=== PATIENT | male | born 1940 | race Caucasian/White ===

== ENCOUNTER 2021-09-06 16:05 | Inpatient (IN) ==
[2021-09-06 16:48] LABS: Basophils # 0.1 10*3/uL (0.0-0.2); Eosinophils # 0.2 10*3/uL (0.0-0.87); Eosinophils % 2.2 % (0.00-10.9); Hematocrit 50.5 VOL% (42.0-52.0); Hemoglobin 16.5 GM/DL (14.0-18.0); Immature Granulocytes % 0.1 %; Immature Granulocytes Absolute 0.01 #; Lymphocytes # 1.8 10*3/uL (1.4-4.0); Lymphocytes % 27.2 % (21.2-54.2); Mean Corpuscular HGB Conc 32.7 GM/DL (32-36); Mean Corpuscular Volume 98.1 FL (87-102); Mean Platelet Volume 12.7 FL (9.6-12.0); Monocytes # 0.8 10*3/uL (0.11-0.8); Monocytes % 11.7 % (1.7-12.7); Neutrophils % 57.8 % (38.7-73.9); Platelet Count 162 T/CUMM (130-400); Red Blood Count 5.15 MC/CUMM (3.8-5.5); White Blood Count 6.8 T/CUMM (4-12)
[2021-09-06] MEDS ORDERED: DILTIAZEM 25 MG/5 ML VIAL IV STA (16:59)
[2021-09-06] MEDS ORDERED: cefTRIAXone 1,000 MG in SODIUM CHLORIDE 0.9% 100 ML IV STA (17:15)
[2021-09-06] MEDS ORDERED: AZITHROMYCIN INJ 500 MG in SODIUM CHLORIDE 0.9% 250 ML IV STA (17:15)
[2021-09-06 17:18] LABS: Albumin 3.5 G/DL (3.4-5.0); Calcium 9.9 MG/DL (8.5-10.1); Osmolality,Calculated 279.8 MOS/KG (273-304); Total Protein 7.7 G/DL (6.4-8.2)
[2021-09-06] MEDS ORDERED: FUROSEMIDE 100 MG/10 ML VIAL IV STA (17:45)
[2021-09-06] MEDS ORDERED: ACETAMINOPHEN 325 MG TABLET PO PRN (18:32)
[2021-09-06] MEDS ORDERED: DEXTROSE 10% 250 ML BAG IV PRN (18:32)
[2021-09-06] MEDS ORDERED: BISACODYL 5 MG TABLET PO PRN (18:32)
[2021-09-06] MEDS ORDERED: GLUCAGON 1 MG VIAL IM PRN (18:32)
[2021-09-06] MEDS ORDERED: LEVALBUTEROL 0.63 MG/3 ML NEB RESP TX PRN (19:27)
[2021-09-06] MEDS ORDERED: guaiFENesin/DM ER 600-30 MG TABLET PO PRN (19:28)
[2021-09-06] MEDS ORDERED: LACTATED RINGERS 1,000 ML IV SCH (20:00)
[2021-09-06 20:29] LABS: Bilirubin,Urine Negative (Negative); Blood, Urine Negative (Negative); Glucose,Urine (UA) Negative (Negative); Ketones,Urine Negative (Negative); Nitrite,Urine Negative (Negative); Protein,Urine Negative (Negative); Urine Appearance Clear (Clear); Urine Color Yellow (Yellow)
[2021-09-06 20:30] LABS: Urine Urobilinogen 0.2 eU/dL (<2.0)
[2021-09-06 20:31] LABS: Bacteria,Urine Occasional /HPF (Few); Hyaline Casts,Urine 10 /LPF (0-3); Mucus,Urine Occasional /LPF (Occasional); RBC,Urine 2 /HPF (0-4)
[2021-09-06] MEDS: BUDESONIDE 0.25 MG/2 ML NEB RESP TX SCH (20:45)
[2021-09-06] MEDS: APIXABAN 5 MG TABLET PO SCH (20:46)
[2021-09-06] MEDS: SIMVASTATIN 10 MG TABLET PO SCH (20:46)
[2021-09-06] MEDS: METOPROLOL TARTRATE 100 MG TABLET PO SCH (20:46)
[2021-09-06] MEDS: DOXYCYCLINE HYCLATE INJ 100 MG in SODIUM CHLORIDE 0.9% 100 ML IV SCH (21:58)
[2021-09-06] MEDS ORDERED: IPRATROPIUM 500 MCG/2.5 ML NEB RESP TX ONE (23:07)
[2021-09-07] MEDS: IPRATROPIUM 500 MCG/2.5 ML NEB RESP TX SCH ×4 (01:30→19:30)
[2021-09-07 03:43] LABS: Basophils # 0.1 10*3/uL (0.0-0.2); Basophils % 1.1 % (0.0-0.8); Eosinophils # 0.2 10*3/uL (0.0-0.87); Eosinophils % 2.4 % (0.00-10.9); Hematocrit 45.1 VOL% (42.0-52.0); Hemoglobin 14.7 GM/DL (14.0-18.0); Immature Granulocytes % 0.3 %; Immature Granulocytes Absolute 0.02 #; Lymphocytes # 1.3 10*3/uL (1.4-4.0); Mean Corpuscular HGB Conc 32.6 GM/DL (32-36); Mean Corpuscular Volume 98.3 FL (87-102); Mean Platelet Volume 12.9 FL (9.6-12.0); Monocytes # 0.8 10*3/uL (0.11-0.8); Monocytes % 12.4 % (1.7-12.7); Neutrophils % 63.8 % (38.7-73.9); Platelet Count 149 T/CUMM (130-400); Red Blood Count 4.59 MC/CUMM (3.8-5.5); Red Cell Distribution Width 13.9 % (9.3-17.3); White Blood Count 6.6 T/CUMM (4-12)
[2021-09-07 05:01] LABS: Calcium 9.2 MG/DL (8.5-10.1); Osmolality,Calculated 287.4 MOS/KG (273-304); Potassium 3.6 MMOL/L (3.5-5.1); Thyroid Stimulating Hormone 1.62 uIU/ml (0.358-3.74)
[2021-09-07] MEDS: THYROID 60 MG TABLET PO SCH (08:27)
[2021-09-07] MEDS: BUDESONIDE 0.25 MG/2 ML NEB RESP TX SCH ×2 (09:10→19:30)
[2021-09-07] MEDS: DOXYCYCLINE HYCLATE INJ 100 MG in SODIUM CHLORIDE 0.9% 100 ML IV SCH ×2 (09:18→20:58)
[2021-09-07] MEDS: OMEGA 3 ACID ETHYL ESTERS 1 GM CAPSULE PO SCH ×2 (09:26→20:58)
[2021-09-07] MEDS: METOPROLOL TARTRATE 100 MG TABLET PO SCH ×2 (09:26→21:07)
[2021-09-07] MEDS: MONTELUKAST 10 MG TABLET PO SCH (09:26)
[2021-09-07] MEDS: APIXABAN 5 MG TABLET PO SCH ×2 (09:27→20:58)
[2021-09-07] MEDS: MULTIVITAMIN (CENTRUM) TABLET PO SCH (09:27)
[2021-09-07] MEDS: cefTRIAXone 1,000 MG in SODIUM CHLORIDE 0.9% 100 ML IV SCH (17:37)
[2021-09-07] MEDS: SIMVASTATIN 10 MG TABLET PO SCH (20:58)
[2021-09-08] MEDS: IPRATROPIUM 500 MCG/2.5 ML NEB RESP TX SCH ×4 (00:10→19:30)
[2021-09-08 05:04] LABS: Basophils # 0.1 10*3/uL (0.0-0.2); Basophils % 0.9 % (0.0-0.8); Eosinophils # 0.2 10*3/uL (0.0-0.87); Eosinophils % 2.4 % (0.00-10.9); Hematocrit 47.5 VOL% (42.0-52.0); Hemoglobin 15.2 GM/DL (14.0-18.0); Immature Granulocytes % 0.5 %; Immature Granulocytes Absolute 0.03 #; Lymphocytes # 1.7 10*3/uL (1.4-4.0); Lymphocytes % 26.9 % (21.2-54.2); Mean Corpuscular Volume 99.4 FL (87-102); Mean Platelet Volume 13.8 FL (9.6-12.0); Monocytes # 0.7 10*3/uL (0.11-0.8); Monocytes % 11.1 % (1.7-12.7); Neutrophils % 58.2 % (38.7-73.9); Platelet Count 145 T/CUMM (130-400); Red Blood Count 4.78 MC/CUMM (3.8-5.5); White Blood Count 6.3 T/CUMM (4-12)
[2021-09-08 05:20] LABS: Calcium 8.9 MG/DL (8.5-10.1); Osmolality,Calculated 281.7 MOS/KG (273-304); Potassium 3.8 MMOL/L (3.5-5.1)
[2021-09-08] MEDS: BUDESONIDE 0.25 MG/2 ML NEB RESP TX SCH ×2 (07:21→19:30)
[2021-09-08] MEDS: OMEGA 3 ACID ETHYL ESTERS 1 GM CAPSULE PO SCH ×2 (09:06→20:22)
[2021-09-08] MEDS: MONTELUKAST 10 MG TABLET PO SCH (09:06)
[2021-09-08] MEDS: THYROID 60 MG TABLET PO SCH (09:07)
[2021-09-08] MEDS: APIXABAN 5 MG TABLET PO SCH ×2 (09:07→20:23)
[2021-09-08] MEDS: MULTIVITAMIN (CENTRUM) TABLET PO SCH (09:07)
[2021-09-08] MEDS: METOPROLOL TARTRATE 100 MG TABLET PO SCH ×2 (09:08→20:23)
[2021-09-08] MEDS: DOXYCYCLINE HYCLATE INJ 100 MG in SODIUM CHLORIDE 0.9% 100 ML IV SCH ×2 (09:10→20:23)
[2021-09-08] MEDS: cefTRIAXone 1,000 MG in SODIUM CHLORIDE 0.9% 100 ML IV SCH (17:14)
[2021-09-08] MEDS ORDERED: FUROSEMIDE 40 MG TABLET PO ONE (18:58)
[2021-09-08] MEDS: SIMVASTATIN 10 MG TABLET PO SCH (20:23)
[2021-09-09] MEDS ORDERED: METOPROLOL TARTRATE 5 MG/5 ML VIAL IV ONE ×4 (00:31→08:37)
[2021-09-09] MEDS: DILTIAZEM 60 MG TABLET PO SCH ×7 (01:35→20:38)
[2021-09-09] MEDS: IPRATROPIUM 500 MCG/2.5 ML NEB RESP TX SCH ×3 (01:55→14:15)
[2021-09-09 06:51] LABS: Basophils # 0.1 10*3/uL (0.0-0.2); Eosinophils # 0.1 10*3/uL (0.0-0.87); Eosinophils % 1.5 % (0.00-10.9); Hematocrit 49.8 VOL% (42.0-52.0); Immature Granulocytes % 0.6 %; Immature Granulocytes Absolute 0.03 #; Lymphocytes # 1.2 10*3/uL (1.4-4.0); Lymphocytes % 22.6 % (21.2-54.2); Mean Corpuscular HGB Conc 32.1 GM/DL (32-36); Mean Platelet Volume 13.9 FL (9.6-12.0); Monocytes # 0.5 10*3/uL (0.11-0.8); Monocytes % 10.1 % (1.7-12.7); Neutrophils % 64.2 % (38.7-73.9); Platelet Count 129 T/CUMM (130-400); Red Blood Count 4.98 MC/CUMM (3.8-5.5); Red Cell Distribution Width 14.1 % (9.3-17.3); White Blood Count 5.2 T/CUMM (4-12)
[2021-09-09 07:23] LABS: Calcium 9.2 MG/DL (8.5-10.1); Osmolality,Calculated 278.8 MOS/KG (273-304); Potassium 4.1 MMOL/L (3.5-5.1); Risk Ratio 2.53; VLDL Cholesterol 11.6 MG/DL
[2021-09-09] MEDS ORDERED: METOCLOPRAMIDE 10 MG/2 ML VIAL IV ONE (07:57)
[2021-09-09] MEDS: METOPROLOL TARTRATE 100 MG TABLET PO SCH ×2 (08:07→20:39)
[2021-09-09] MEDS: MONTELUKAST 10 MG TABLET PO SCH (08:07)
[2021-09-09] MEDS: MULTIVITAMIN (CENTRUM) TABLET PO SCH (08:07)
[2021-09-09] MEDS: OMEGA 3 ACID ETHYL ESTERS 1 GM CAPSULE PO SCH ×2 (08:07→20:40)
[2021-09-09] MEDS: APIXABAN 5 MG TABLET PO SCH ×2 (08:08→20:38)
[2021-09-09] MEDS: BUDESONIDE 0.25 MG/2 ML NEB RESP TX SCH ×2 (08:34→20:18)
[2021-09-09] MEDS: ASPIRIN EC 81 MG TABLET PO SCH (08:48)
[2021-09-09] MEDS: THYROID 60 MG TABLET PO SCH (08:48)
[2021-09-09] MEDS: DOXYCYCLINE HYCLATE INJ 100 MG in SODIUM CHLORIDE 0.9% 100 ML IV SCH ×2 (08:55→21:13)
[2021-09-09] MEDS ORDERED: SODIUM CHLORIDE 0.9% 250 ML IV ONE (09:26)
[2021-09-09] MEDS: FUROSEMIDE 40 MG TABLET PO SCH (12:11)
[2021-09-09] MEDS ORDERED: FUROSEMIDE 40 MG/4 ML VIAL IV ONE (14:26)
[2021-09-09 14:32] LABS: Hyaline Casts,Urine 7 /LPF (0-3); Mucus,Urine Occasional /LPF (Occasional); RBC,Urine 1 /HPF (0-4); Squamous Epithelial Cell,Urine Occasional /HPF (0-10); Urine Appearance Clear (Clear); Urine Color Yellow (Yellow)
[2021-09-09 14:33] LABS: Bilirubin,Urine Negative (Negative); Blood, Urine Negative (Negative); Glucose,Urine (UA) Negative (Negative); Ketones,Urine Negative (Negative); Nitrite,Urine Negative (Negative); Protein,Urine Negative (Negative); Urine Urobilinogen 0.2 eU/dL (<2.0)
[2021-09-09] MEDS: cefTRIAXone 1,000 MG in SODIUM CHLORIDE 0.9% 100 ML IV SCH (17:36)
[2021-09-09] MEDS: SIMVASTATIN 10 MG TABLET PO SCH (21:13)
[2021-09-10 05:10] LABS: Basophils # 0.1 10*3/uL (0.0-0.2); Basophils % 0.6 % (0.0-0.8); Eosinophils # 0.2 10*3/uL (0.0-0.87); Eosinophils % 2.1 % (0.00-10.9); Hematocrit 46.7 VOL% (42.0-52.0); Immature Granulocytes % 0.2 %; Immature Granulocytes Absolute 0.02 #; Lymphocytes # 1.7 10*3/uL (1.4-4.0); Lymphocytes % 19.8 % (21.2-54.2); Mean Corpuscular HGB Conc 32.1 GM/DL (32-36); Mean Corpuscular Volume 98.9 FL (87-102); Mean Platelet Volume 13.8 FL (9.6-12.0); Monocytes % 12.3 % (1.7-12.7); Platelet Count 147 T/CUMM (130-400); Red Blood Count 4.72 MC/CUMM (3.8-5.5); Red Cell Distribution Width 13.9 % (9.3-17.3); White Blood Count 8.4 T/CUMM (4-12)
[2021-09-10 05:26] LABS: Calcium 9.1 MG/DL (8.5-10.1); Potassium 3.6 MMOL/L (3.5-5.1)
[2021-09-10] MEDS: THYROID 60 MG TABLET PO SCH (06:01)
[2021-09-10 07:18] VITALS: BP 116/81
[2021-09-10] MEDS: BUDESONIDE 0.25 MG/2 ML NEB RESP TX SCH (07:20)
[2021-09-10] MEDS: MULTIVITAMIN (CENTRUM) TABLET PO SCH (08:44)
[2021-09-10] MEDS: MONTELUKAST 10 MG TABLET PO SCH (08:44)
[2021-09-10] MEDS: OMEGA 3 ACID ETHYL ESTERS 1 GM CAPSULE PO SCH (08:45)
[2021-09-10] MEDS: FUROSEMIDE 40 MG TABLET PO SCH (08:45)
[2021-09-10] MEDS: APIXABAN 5 MG TABLET PO SCH (08:45)
[2021-09-10] MEDS: METOPROLOL TARTRATE 100 MG TABLET PO SCH (08:45)
[2021-09-10] MEDS: ASPIRIN EC 81 MG TABLET PO SCH (08:50)
[2021-09-10] MEDS: DOXYCYCLINE HYCLATE INJ 100 MG in SODIUM CHLORIDE 0.9% 100 ML IV SCH (08:50)
[2021-09-10] MEDS ORDERED: ASCORBIC ACID 500 MG TABLET PO SCH (09:00)
[2021-09-10] MEDS ORDERED: DILTIAZEM CD 120 MG CAPSULE PO SCH (09:00)
== END 2021-09-10 11:05 | disposition home health service (06) | DRG 193 ==
LOC: N.ED 16:05 → SUATTDRO 19:12 → N.EDINP 19:12 → N.5E 09-07 08:52
PROVIDERS: ADMIT Internal Medicine; ATTEND Internal Medicine

== ENCOUNTER 2022-01-11 09:39 | Observation (INO) ==
[2022-01-06 11:50] LABS: Basophils # 0.1 10*3/uL (0.0-0.2); Basophils % 1.5 % (0.0-0.8); Eosinophils # 0.4 10*3/uL (0.0-0.87); Eosinophils % 6.9 % (0.00-10.9); Hematocrit 47.4 VOL% (42.0-52.0); Hemoglobin 15.3 GM/DL (14.0-18.0); Immature Granulocytes % 0.2 %; Immature Granulocytes Absolute 0.01 #; Lymphocytes # 1.7 10*3/uL (1.4-4.0); Lymphocytes % 31.8 % (21.2-54.2); Mean Corpuscular HGB Conc 32.3 GM/DL (32-36); Mean Corpuscular Volume 101.7 FL (87-102); Mean Platelet Volume 12.9 FL (9.6-12.0); Monocytes # 0.7 10*3/uL (0.11-0.8); Monocytes % 12.8 % (1.7-12.7); Neutrophils % 46.8 % (38.7-73.9); Platelet Count 123 T/CUMM (130-400); Red Blood Count 4.66 MC/CUMM (3.8-5.5); Red Cell Distribution Width 14.8 % (9.3-17.3); White Blood Count 5.3 T/CUMM (4-12)
[2022-01-06 12:01] LABS: INR 1.2; PT Patient Result 13.2 SECS (10.1-12.1); Partial Thromboplastin Time 29.3 SECS (23.7-32.9)
[2022-01-06 12:11] LABS: Albumin 3.3 G/DL (3.4-5.0); Bilirubin,Total 1.5 MG/DL (0.20-1.00); Calcium 9.4 MG/DL (8.5-10.1); Osmolality,Calculated 284.1 MOS/KG (273-304); Potassium 4.2 MMOL/L (3.5-5.1); Total Protein 6.8 G/DL (6.4-8.2)
[~2022-01-11 09:39] MED LIST: LACTATED RINGERS 1,000 ML IV SCH; cefTRIAXone 1,000 MG in SODIUM CHLORIDE 0.9% 100 ML IV ONE
[2022-01-11] MEDS ORDERED: DIAZEPAM 5 MG TABLET PO ONE (10:06)
[2022-01-11] MEDS ORDERED: FAMOTIDINE 20 MG TABLET PO ONE (10:06)
[2022-01-11] MEDS ORDERED: fentaNYL 100 MCG/2 ML VIAL ONE (14:47)
[2022-01-11] MEDS ORDERED: LIDOCAINE 2% 5 ML VIAL ONE (15:33)
[2022-01-11] MEDS ORDERED: propofoL 200 MG/20 ML VIAL IV ONE (15:33)
[2022-01-11] MEDS ORDERED: SEVOFLURANE 1 UNIT/15 MINUTE INH ONE (15:33)
[2022-01-11] MEDS ORDERED: ONDANSETRON 4 MG/2 ML VIAL ONE (15:34)
[2022-01-11] MEDS ORDERED: PHENYLEPHRINE 1 MG/10 ML SYRINGE IV ONE ×3 (15:53→16:06)
[2022-01-11] MEDS ORDERED: MAGNESIUM HYDROXIDE SUSP 30 ML UDCUP PO PRN (16:15)
[2022-01-11] MEDS ORDERED: OXYBUTYNIN 5 MG TABLET PO PRN (16:15)
[2022-01-11] MEDS ORDERED: BELLADONNA/OPIUM 30 MG SUPP RECTAL ONE (16:15)
[2022-01-11] MEDS ORDERED: ONDANSETRON 4 MG/2 ML VIAL IV PRN (16:15)
[2022-01-11] MEDS ORDERED: PROMETHAZINE 25 MG/1 ML VIAL IM PRN (16:15)
[2022-01-11] MEDS ORDERED: SIMETHICONE CHEW 125 MG TABLET PO PRN (16:15)
[2022-01-11] MEDS ORDERED: diphenhydrAMINE 50 MG/1 ML VIAL IV PRN (16:15)
[2022-01-11] MEDS ORDERED: HYDROmorphone 1 MG/1 ML SYRINGE IV PRN (16:15)
[2022-01-11] MEDS ORDERED: oxyCODONE/ACETAMINOPHEN 5-325 MG TABLET PO PRN (16:15)
[2022-01-11] MEDS ORDERED: FUROSEMIDE 40 MG TABLET PO PRN (16:18)
[2022-01-11 16:56] LABS: Basophils # 0.1 10*3/uL (0.0-0.2); Basophils % 1.2 % (0.0-0.8); Eosinophils # 0.2 10*3/uL (0.0-0.87); Eosinophils % 3.2 % (0.00-10.9); Hematocrit 47.4 VOL% (42.0-52.0); Hemoglobin 15.3 GM/DL (14.0-18.0); Immature Granulocytes % 0.2 %; Immature Granulocytes Absolute 0.01 #; Lymphocytes # 1.9 10*3/uL (1.4-4.0); Lymphocytes % 38.4 % (21.2-54.2); Mean Corpuscular HGB Conc 32.3 GM/DL (32-36); Mean Corpuscular Volume 102.4 FL (87-102); Mean Platelet Volume 12.8 FL (9.6-12.0); Monocytes # 0.6 10*3/uL (0.11-0.8); Monocytes % 12.5 % (1.7-12.7); Neutrophils % 44.5 % (38.7-73.9); Platelet Count 128 T/CUMM (130-400); Red Blood Count 4.63 MC/CUMM (3.8-5.5); Red Cell Distribution Width 14.9 % (9.3-17.3); White Blood Count 5.1 T/CUMM (4-12)
[2022-01-11 17:15] LABS: Calcium 9.1 MG/DL (8.5-10.1); Potassium 4.1 MMOL/L (3.5-5.1)
[2022-01-11] MEDS: ACETAMINOPHEN 325 MG TABLET PO SCH ×2 (18:00→22:23)
[2022-01-11] MEDS: LEVALBUTEROL 0.63 MG/3 ML NEB RESP TX SCH (19:55)
[2022-01-11] MEDS: DOCUSATE SODIUM 100 MG CAPSULE PO SCH (22:24)
[2022-01-11] MEDS: METOPROLOL TARTRATE 50 MG TABLET PO SCH (22:24)
[2022-01-12] MEDS: LEVALBUTEROL 0.63 MG/3 ML NEB RESP TX SCH ×2 (00:44→07:03)
[2022-01-12] MEDS: ACETAMINOPHEN 325 MG TABLET PO SCH ×2 (04:13→10:38)
[2022-01-12 05:55] LABS: Basophils # 0.1 10*3/uL (0.0-0.2); Basophils % 0.9 % (0.0-0.8); Eosinophils # 0.3 10*3/uL (0.0-0.87); Eosinophils % 4.7 % (0.00-10.9); Hematocrit 46.5 VOL% (42.0-52.0); Immature Granulocytes % 0.3 %; Immature Granulocytes Absolute 0.02 #; Lymphocytes % 29.4 % (21.2-54.2); Mean Corpuscular HGB Conc 32.3 GM/DL (32-36); Mean Corpuscular Volume 103.6 FL (87-102); Mean Platelet Volume 13.6 FL (9.6-12.0); Monocytes # 0.6 10*3/uL (0.11-0.8); Neutrophils % 55.7 % (38.7-73.9); Platelet Count 122 T/CUMM (130-400); Red Blood Count 4.49 MC/CUMM (3.8-5.5); Red Cell Distribution Width 14.8 % (9.3-17.3); White Blood Count 6.7 T/CUMM (4-12)
[2022-01-12 06:18] LABS: Calcium 8.9 MG/DL (8.5-10.1); Potassium 3.8 MMOL/L (3.5-5.1)
[2022-01-12] MEDS ORDERED: THYROID 60 MG TABLET PO SCH (06:30)
[2022-01-12] MEDS ORDERED: SIMVASTATIN 10 MG TABLET PO SCH (09:00)
[2022-01-12] MEDS: DOCUSATE SODIUM 100 MG CAPSULE PO SCH (09:01)
[2022-01-12] MEDS: METOPROLOL TARTRATE 50 MG TABLET PO SCH (10:38)
[2022-01-12] MEDS ORDERED: cefTRIAXone 1,000 MG in SODIUM CHLORIDE 0.9% 100 ML IV SCH (11:00)
[2022-01-12 12:27] VITALS: BP 96/63
== END 2022-01-12 15:50 | disposition home or self-care (01) ==
LOC: N.3E 09:39 → N.OR 09:39 → N.SDSINP 09:39 → N.3E 17:18
PROVIDERS: ADMIT Surgery; ATTEND Surgery